=== PATIENT | female | born 1995 | race Caucasian/White ===

== ENCOUNTER 2020-01-31 01:47 | Inpatient (IN) ==
[2020-01-31] MEDS ORDERED: *HR* FentaNYL (PF) 100 MCG/2 ML VIAL IVP PRN (02:00)
[2020-01-31] MEDS ORDERED: miSOPROStoL 25 MCG TABLET VG PRN (02:00)
[2020-01-31] MEDS ORDERED: Famotidine 20 MG/2 ML VIAL IVP PRN (02:00)
[2020-01-31] MEDS ORDERED: Ondansetron 4 MG/2 ML VIAL IVP PRN ×2 (02:00→11:05)
[2020-01-31] MEDS ORDERED: Naloxone 0.4 MG/ML INJ IVP PRN ×2 (02:00→11:05)
[2020-01-31] MEDS ORDERED: Lidocaine 1% 20 ML MDV INFILT PRN (02:00)
[2020-01-31] MEDS ORDERED: Metoclopramide 10 MG/2 ML VIAL IVP PRN (02:00)
[2020-01-31 02:39] LABS: Basophils % 0.2 %; Eosinophils # 0.1 K/mcL (0.0-0.6); Eosinophils % 0.8 %; Hematocrit 35.3 % (35.3-44.9); Hemoglobin 11.6 g/dL (11.5-15.4); Immature Granulocytes % 1.1 % (0-4); Lymphocytes # 2.8 K/mcL (0.6-4.6); Lymphocytes % 21.7 %; Mean Corpuscular HGB Conc 32.9 g/dL (31.6-35.5); Mean Corpuscular Hemoglobin 28.9 pg (28.0-33.3); Mean Platelet Volume 12.5 fL (9.4-12.4); Monocytes # 0.7 K/mcL (0.0-1.3); Monocytes % 5.3 %; Neutrophils # 9.2 K/mcL (1.6-8.9); Platelet Count 238 K/mcL (140-400); Red Blood Count 4.01 M/mcL (3.82-4.97); Red Cell Distribution Width 12.9 % (11.5-14.5); Segmented Neutrophils % 70.9 %
[2020-01-31 02:54] LABS: Amphetamine Screen,Urine Negative ng/mL (Cutoff=1000); Barbiturate Screen,Urine Negative ng/mL (Cutoff=200); Benzodiazepines Screen,Urine Negative ng/mL (Cutoff=200); Cannabinoid Screen,Urine Negative ng/mL (Cutoff = 50); Cocaine Screen,Urine Negative ng/mL (Cutoff= 300); Opiate Screen,Urine Negative ng/mL (Cutoff=300); Phencyclidine Screen,Urine Negative ng/mL (Cutoff=25)
[2020-01-31] MEDS: Ringers Solution, Lactated 1,000 ML IVC SCH ×3 (03:49→18:11)
[2020-01-31] MEDS: Oxytocin 20 units/ LR 1000 mL 20 UNIT/1,000 ML BAG IVC SCH ×2 (03:50→14:49)
[2020-01-31] MEDS ORDERED: 0.9 % Sodium Chloride 1,000 ML ONE ×2 (08:47→16:13)
[2020-01-31 10:35] LABS: Adenovirus Not Detected (Not Detect); Bordetella Pertussis Not Detected (Not Detect); Chlamydophila pneumoniae Not Detected (Not Detect); Coronavirus 229E Not Detected (Not Detect); Coronavirus HKU1 Not Detected (Not Detect); Coronavirus NL63 Not Detected (Not Detect); Coronavirus OC43 Not Detected (Not Detect); Human Metapneumovirus Not Detected (Not Detect); Human Rhinovirus/Enterovirus Not Detected (Not Detect); Influenza A Subtype 2009 H1 Not Detected (Not Detect); Influenza B Not Detected (Not Detect); Mycoplasma pneumoniae Not Detected (Not Detect); Parainfluenza Virus 1 Not Detected (Not Detect); Parainfluenza Virus 2 Not Detected (Not Detect); Parainfluenza Virus 3 Not Detected (Not Detect); Parainfluenza Virus 4 Not Detected (Not Detect); Respiratory Syncytial Virus Not Detected (Not Detect); SARS-CoV-2 Not Detected (Not Detect)
[2020-01-31] MEDS ORDERED: Ropivacaine/PF 0.2% 20 ML VIAL EP ONE (11:05)
[2020-01-31] MEDS ORDERED: EPHEDrine 50 MG/ML VIAL IVP PRN (11:05)
[2020-01-31] MEDS ORDERED: Ropivacaine/PF 0.2% 20 ML VIAL ONE (11:19)
[2020-01-31] MEDS: Epidural Premix (fent/bupiv) 110 ML EP SCH ×2 (14:02→18:40)
[2020-02-01] MEDS: Epidural Premix (fent/bupiv) 110 ML EP SCH (01:00)
[2020-02-01] MEDS ORDERED: Lanolin 7 G OINT...G. TP PRN (09:46)
[2020-02-01] MEDS ORDERED: Benzocaine/Menthol 56 GM AEROSOL SPRAY TP PRN (09:46)
[2020-02-01] MEDS ORDERED: Oxytocin 20 units/ LR 1000 mL 20 UNIT/1,000 ML BAG IVC SCH (09:46)
[2020-02-01] MEDS: Acetaminophen 325 MG TABLET PO SCH ×2 (14:04→21:00)
[2020-02-01] MEDS: Ibuprofen 600 MG TABLET PO SCH (14:04)
[2020-02-01] MEDS: Prenatal Vit/FA 1 EACH TABLET PO SCH (14:04)
[2020-02-02] MEDS: Acetaminophen 325 MG TABLET PO SCH ×2 (02:03→09:38)
[2020-02-02] MEDS: Ibuprofen 600 MG TABLET PO SCH ×2 (02:03→09:19)
[2020-02-02 07:46] VITALS: BP 109/72
[2020-02-02] MEDS: Prenatal Vit/FA 1 EACH TABLET PO SCH (09:19)
== END 2020-02-02 14:35 | disposition home or self-care (01) | DRG 560 ==
LOC: 1NENULAB 01:47 → 1NENUOBS 02-01 09:28
PROVIDERS: ADMIT Obstetrics & Gynecology; ATTEND Obstetrics & Gynecology